=== PATIENT | male | born 2000 | race American Indian/Alaskan Native ===

== ENCOUNTER 2020-05-24 19:22 | Emergency (ER) | payer BC ==
--- NOTE | 2020-05-24 19:44 | Emergency Department Report ---
Stated Complaint: POSS UTI Time Seen by Provider: 05/24/20 19:40 - HPI History of Present Illness: Patient is a 19-year-old male presents emergency room with complaints of dysuria that began a couple weeks ago. He also has associated yellow penile discharge. He states that he was sexually active without protection. He denies any fever, nausea, vomiting, diarrhea, hematuria, urinary retention, abdominal pain, pain or swelling in the testicles, back pain. No past medical history. No allergies medications. Vitals are normal On exam: Non toxic appearing, no acute distress atraumatic, normocephalic normal appearance of the eyes, EOMI, no periorbital edema or ecchymosis moist mucus membranes No respiratory distress, no accessory muscle use A&O x4, no focal neuro deficit Patient is presenting for symptoms consistent with STD He denies any fever, nausea, vomiting, diarrhea, hematuria, urinary retention, abdominal pain, pain or swelling in the testicles, back pain. This hospital policy does not treat uncomplicated male STDs Patient referred to the appropriate resources Discussed strict return precautions medical screening exam is performed there is no threat to life or limb at this time MSE screening note: Focused history and physical exam performed. Due to findings the following was ordered: ED Disposition for MSE Clinical Impression: Concern about STD in male without diagnosis Disposition: Z- MED SCREENING EXAM-LEFT Is pt being admited?: No Does the pt Need Aspirin: No Condition: Stable Instructions: Safe Sex Additional Instructions: please follow up with a clinic or health department for full STD panel. have any partner tested and treated as well. avoid sexual intercourse. return to the emergency room for any new or worsening symptoms. walk in clinc: [facility] Address: [address] [place] [id number] Referrals: [facility] [Outside] - 2-3 Days [facility] [Provider Group] - 2-3 Days Time of Disposition: 19:41 Print Language: NEPALI
[2020-05-25 06:00] VITALS: BP 119/76
== END 2020-05-24 19:50 | disposition left against medical advice (07) ==
LOC: ED 19:22
DX: R30.0 Dysuria (principal); Z20.2 Contact with and (suspected) exposure to infections with a predominantly sexual mode of transmission; Z53.21 Procedure and treatment not carried out due to patient leaving prior to being seen by health care provider